=== PATIENT | male | born 1935 | race Caucasian/White ===

== ENCOUNTER 2020-06-10 16:52 | Emergency (ER) | payer OTHER, MEDICARE ==
[~2020-06-10] VITALS: Ht 175.3 cm; Wt 68.0 kg
[2020-06-10 18:31] LABS: HEMATOCRIT 24.6 % (42.0-52.0); HEMOGLOBIN 8.2 gm/dL (14.0-18.0); MCH 33.8 pg (26.0-34.0); MCHC 33.4 g/dL (28.0-37.0); MCV 101.3 fL (80.0-100.0); PLATELET COUNT 347 thou/uL (150-400); RBC 2.42 mil/uL (4.50-6.00); RDW 25.2 % (10.5-14.5); WBC 9.8 thou/uL (4.0-11.0)
--- NOTE | 2020-06-10 18:35 | NUR ---
VAT CONSULTED TO REPLACE PICC, PT PULLED OUT AT SC. 4FR LEFT UPPER BRACHIAL, SL PICC PLACED. TRIMMED 47 AND 0CM EXTERNAL. CXR ORDERED TO VERIFY PICC TIP LOCATION. PT OOZING QUITE A BIT, OUT OF DRESSING. THIS RN PROVIDED EDUCATION TO PROVIDER, JACKIE CHIU AND PT'S SON, THAT PRESSURE DRESSING SHOULD STAY IN PLACE FOR 24 HOURS, BEFORE CHANGED, SO HEMOSTASIS CAN BE ACHIEVED.
--- NOTE | 2020-06-10 18:39 | NUR ---
RADIOLOGY REPORT: PICC TIP OVERLIES ATRIAL CAVAL JUNCTION. RELEASED PICC FOR USE, PER HOSPITAL POLICY.
[2020-06-10 18:41] LABS: CALCIUM 7.8 mg/dL (8.5-10.1); CREATININE 1.6 mg/dL (0.7-1.3); POTASSIUM 3.1 mmol/L (3.5-5.1)
[2020-06-10 18:47] LABS: ALBUMIN 2.2 g/dL (3.4-5.0); TOTAL BILIRUBIN 0.5 mg/dL (0.2-1.0)
[2020-06-10 19:11] LABS: ABSOLUTE NEUTROPHILS 7.8 thou/uL (1.4-8.2)
[2020-06-10 19:12] VITALS: BP 167/87
[2020-06-10 19:12] LABS: ANISOCYTOSIS 3+
== END 2020-06-10 19:14 | disposition home or self-care (01) ==
LOC: ER 16:52
PROVIDERS: Nurse Practitioner
DX: R53.1 Weakness (principal)
CPT/HCPCS: 27000